=== PATIENT | female | born 1995 | race Caucasian/White ===

== ENCOUNTER 2023-08-21 20:14 | Inpatient (IN) | payer MEDICAID ==
[~2023-08-21] VITALS: Ht 149.9 cm; Wt 65.8 kg
[2023-08-21 20:29] VITALS: BP_SYST 109; PULSE 95; RESP 18; TEMP 100; O2SAT 98
[2023-08-21 20:54] LABS: BASOPHILS # (AUTO) 0.1 K/uL (0.0-0.2); BASOPHILS % (AUTO) 0.5 % (0.0-2.0); EOSINOPHILS % (AUTO) 0.2 % (0.0-4.0); HEMATOCRIT 39.6 % (36-48); HEMOGLOBIN 13.6 g/dL (12.0-16.0); LYMPHOCYTES # (AUTO) 1.6 K/uL (1.0-5.5); MEAN CORPUSCULAR HEMOGLOBIN 30 pg (27-31); MEAN CORPUSCULAR HGB CONC 34 % (32-36); MEAN CORPUSCULAR VOLUME 88 fL (79.0-98.0); MONOCYTES # (AUTO) 0.6 K/uL (0.0-1.0); MONOCYTES % (AUTO) 3.8 % (1.7-9.3); NEUTROPHILS # (AUTO) 13.8 K/uL (1.8-7.7); NEUTROPHILS % (AUTO) 85.5 % (40.0-70.0); PLATELET COUNT (AUTO) 266 K/uL (130-430); RED BLOOD CELL COUNT(AUTO) 4.48 MIL/uL (4.2-6.2); WHITE BLOOD COUNT (AUTO) 16.2 K/uL (4.8-10.8)
[2023-08-21 21:02] LABS: SERUM HCG (QUALITATIVE) NEGATIVE (NEGATIVE)
[2023-08-21 21:08] LABS: CALCIUM 8.6 mg/dL (8.4-11.0); CREATININE 0.76 mg/dL (0.55-1.30); POTASSIUM 3.6 mmol/L (3.5-5.1)
[2023-08-21 21:22] LABS: BILIRUBIN,URINE 1+ (NEGATIVE); BLOOD, URINE NEGATIVE (NEGATIVE); COLOR,URINE YELLOW (YELLOW); GLUCOSE,URINE NEGATIVE (NEGATIVE); KETONES,URINE TRACE (NEGATIVE); LEUKOCYTE ESTERASE ,URINE TRACE (NEGATIVE); NITRITE, URINE POSITIVE (NEGATIVE); PH,URINE 6.5 (5.0-8.0); PROTEIN URINE 1+ (NEGATIVE)
[2023-08-21 21:55] LABS: CLARITY/URINE SLIGHTLY HAZY (CLEAR)
[2023-08-21 21:56] LABS: BACTERIA,URINE MODERATE /HPF (None Seen); MUCUS,URINE 3+ /LPF (None Seen); RBC,URINE 0-3 /HPF (0-3)
[2023-08-21] MEDS ORDERED: PIPERACILLIN/TAZOBACTAM 3.375 GM/VIAL (ZOSYN) IV ONE (22:55)
[2023-08-21] MEDS ORDERED: cefTRIAXone 1 GM VIAL ONE (22:56)
[2023-08-21] MEDS: NACL 0.9% 1,000 ML IV ONE (23:05)
[2023-08-21] MEDS: cefTRIAXone 1 GM in D5W 50 ML IV ONE (23:06)
[2023-08-21] MEDS: PIPERACILLIN/TAZO 3.375 GM in NS 50 ML IV ONE (23:24)
[2023-08-22] MEDS: DOXYCYCLINE HYCLATE 100 MG CAPSULE PO SCH (01:08)
[2023-08-22] MEDS: ONDANSETRON HCL 4 MG/2 ML VIAL IVP PRN (01:33)
[2023-08-22] MEDS: NACL 0.9% 1,000 ML IV SCH (01:33)
[2023-08-22] MEDS: KETOROLAC TROMETHAMINE 15 MG VIAL IVP PRN (01:33)
[2023-08-22 01:44] VITALS: BP_SYST 105; PULSE 96; RESP 18; TEMP 102.9; O2SAT 100
[2023-08-22] MEDS ORDERED: PIPERACILLIN/TAZO 3.375 GM in D5W 50 ML IV SCH (06:00)
[2023-08-22 08:00] VITALS: BP_SYST 107; PULSE 85; RESP 18; TEMP 98.1; O2SAT 100
[2023-08-22 08:30] VITALS: O2SAT 100
[2023-08-22 12:08] VITALS: BP_SYST 106; RESP 18; TEMP 98.6; O2SAT 99
[2023-08-22 16:09] VITALS: BP_SYST 105; PULSE 77; RESP 18; TEMP 98.4; O2SAT 99
[2023-08-22 20:30] VITALS: BP_SYST 120; PULSE 101; RESP 18; TEMP 98.2; O2SAT 100
[2023-08-22] MEDS: cefTRIAXone 1 GM in D5W 50 ML IV SCH (20:48)
[2023-08-22] MEDS: ACETAMINOPHEN 325 MG TABLET PO PRN (21:14)
[2023-08-23 00:45] VITALS: BP_SYST 118; PULSE 80; RESP 16; TEMP 97.8; O2SAT 97
[2023-08-23 05:14] LABS: BASOPHILS % (AUTO) 0.3 % (0.0-2.0); EOSINOPHILS % (AUTO) 0.4 % (0.0-4.0); HEMATOCRIT 34.7 % (36-48); HEMOGLOBIN 11.8 g/dL (12.0-16.0); LYMPHOCYTES # (AUTO) 1.5 K/uL (1.0-5.5); LYMPHOCYTES % (AUTO) 14.4 % (20.5-51.5); MEAN CORPUSCULAR HEMOGLOBIN 31 pg (27-31); MEAN CORPUSCULAR HGB CONC 34 % (32-36); MEAN CORPUSCULAR VOLUME 90 fL (79.0-98.0); MONOCYTES # (AUTO) 0.5 K/uL (0.0-1.0); MONOCYTES % (AUTO) 5.1 % (1.7-9.3); NEUTROPHILS # (AUTO) 8.1 K/uL (1.8-7.7); NEUTROPHILS % (AUTO) 79.8 % (40.0-70.0); PLATELET COUNT (AUTO) 229 K/uL (130-430); RED BLOOD CELL COUNT(AUTO) 3.85 MIL/uL (4.2-6.2); RED CELL DISTRIBUTION WIDTH 12.9 % (9.0-15.0); WHITE BLOOD COUNT (AUTO) 10.2 K/uL (4.8-10.8)
[2023-08-23 05:45] LABS: ALBUMIN 2.7 g/dL (3.4-4.8); CALCIUM 7.7 mg/dL (8.4-11.0); CREATININE 0.56 mg/dL (0.55-1.30); POTASSIUM 3.2 mmol/L (3.5-5.1); TOTAL BILIRUBIN 1.1 mg/dL (0.0-1.0); TOTAL PROTEIN, SERUM 6.4 g/dL (6.4-8.3)
[2023-08-23 08:25] VITALS: BP_SYST 123; PULSE 82; RESP 20; TEMP 98.8
[2023-08-23 08:41] VITALS: O2SAT 99
[2023-08-23 10:08] LABS: NEISSERIA GONORRHOEAE PCR Detected (NOTdetected)
[2023-08-23 12:00] VITALS: BP_SYST 128; PULSE 76; RESP 18; TEMP 97.7; O2SAT 100
[2023-08-23] MEDS: PANTOPRAZOLE SODIUM 40 MG TAB PO ONE (15:06)
[2023-08-23 16:00] VITALS: BP_SYST 122; PULSE 89; RESP 18; TEMP 98.1
[2023-08-23 20:40] VITALS: BP_SYST 126; PULSE 69; RESP 16; TEMP 97.8; O2SAT 98
[2023-08-23] MEDS: PANTOPRAZOLE SODIUM 40 MG TAB PO SCH (21:17)
[2023-08-23] MEDS: metroNIDAZOLE 500 mg/NS 100 ML IV SCH (21:18)
[2023-08-24 00:04] VITALS: BP_SYST 127; PULSE 70; RESP 17; TEMP 98; O2SAT 97
[2023-08-24 08:00] VITALS: BP_SYST 116; PULSE 83; RESP 18; TEMP 98.6; O2SAT 95; O2SAT 99
[2023-08-24 12:00] VITALS: BP_SYST 125; PULSE 70; RESP 18; TEMP 98; O2SAT 99
[2023-08-24 12:06] LABS: HSV 2 IgG, TYPE SPECIFIC 1.72 index (0.00-0.90)
[2023-08-24 16:00] VITALS: BP_SYST 114; PULSE 91; RESP 18; TEMP 98.6; O2SAT 99
[2023-08-24] MEDS ORDERED: LEVO-62 PO (17:03)
[2023-08-24] MEDS: POTASSIUM CHLORIDE 20 MEQ TABLET.ER PO ONE (17:08)
[2023-08-24] MEDS ORDERED: METR-154 PO (17:09)
[2023-08-24] MEDS ORDERED: LACT1CAP69 PO (17:10)
[2023-08-24 17:59] VITALS: BP_SYST 116; PULSE 69; RESP 18; TEMP 98; O2SAT 97
== END 2023-08-24 18:41 | disposition home or self-care (01) | DRG 531 ==
LOC: SED 20:14 → SMU 22:21
PROVIDERS: ADMIT Internal Medicine; ATTEND Internal Medicine
DX: A54.24 Gonococcal female pelvic inflammatory disease (principal); E43 Unspecified severe protein-calorie malnutrition; E66.9 Obesity, unspecified; N10 Acute pyelonephritis; E87.6 Hypokalemia; Z68.29 Body mass index [BMI] 29.0-29.9, adult; Z79.899 Other long term (current) drug therapy
CPT/HCPCS: 36415; 76830; 76857; 80048; 80053; 81000; 81001; 81015; 83605; 84703; 85025; 86592; 86695; 86696; 87040; 87086; 87186; 87491; 96365; 96368; 99291; J0696; J1885; J2405; J2543; J3490; J7060

== ENCOUNTER 2024-01-16 16:35 | Emergency (ER) | payer MEDICAID, OTHER ==
[~2024-01-16] VITALS: Ht 149.9 cm; Wt 67.1 kg
[~2024-01-16 16:35] MED LIST: HYDR-3917 PO; IBUP-1969 PO; LACT1CAP69 PO; LEVO-62 PO; METR-154 PO
[2024-01-16 16:56] VITALS: BP_SYST 116; PULSE 84; RESP 18; TEMP 98.2; O2SAT 99
[2024-01-16] MEDS: methylPREDNISolone SOD SUCC/PF 62.5 MG/ML VIAL IM ONE (20:28)
[2024-01-16] MEDS: DIPHENHYDRAMINE INJ 50 MG/ML VIAL IM ONE (20:28)
[2024-01-16] MEDS ORDERED: METH-776 PO (20:50)
[2024-01-16] MEDS ORDERED: FEXO180T94 PO (20:50)
[2024-01-16 20:54] VITALS: BP_SYST 119; PULSE 83; RESP 17; TEMP 97.7; O2SAT 99
== END 2024-01-16 20:54 | disposition home or self-care (01) ==
LOC: SED 16:35
DX: L50.8 Other urticaria (principal); Z79.899 Other long term (current) drug therapy; Z79.2 Long term (current) use of antibiotics
CPT/HCPCS: 99284; 96372; J1200; J2930

== ENCOUNTER 2024-01-18 00:16 | Emergency (ER) | payer OTHER ==
[~2024-01-18] VITALS: Ht 149.9 cm; Wt 68.0 kg
[~2024-01-18 00:16] MED LIST changes: +FEXO180T94 PO; +METH-776 PO
[2024-01-18 00:18] VITALS: BP_SYST 124; PULSE 86; RESP 24; TEMP 98; O2SAT 98
[2024-01-18] MEDS ORDERED: EPIN0.3P3 IM (00:44)
[2024-01-18] MEDS: DIPHENHYDRAMINE INJ 50 MG/ML VIAL IM ONE (00:52)
[2024-01-18 02:25] VITALS: BP_SYST 112; PULSE 65; RESP 18; TEMP 98.6; O2SAT 98
== END 2024-01-18 02:27 | disposition home or self-care (01) ==
LOC: SED 00:16
DX: T78.49XA Other allergy, initial encounter (principal); X58.XXXA Exposure to other specified factors, initial encounter
CPT/HCPCS: 99283; 96372; J1200